=== PATIENT | female | born 1990 | race Caucasian/White ===

== ENCOUNTER 2019-08-11 09:28 | Inpatient (IN) ==
[2019-08-11] MEDS ORDERED: Famotidine 20 MG/2 ML VIAL IVP PRN (10:05)
[2019-08-11] MEDS ORDERED: Metoclopramide 10 MG/2 ML VIAL IVP PRN ×2 (10:05→13:53)
[2019-08-11] MEDS ORDERED: Lidocaine 1% 20 ML MDV INFILT PRN (10:05)
[2019-08-11] MEDS ORDERED: Ondansetron 4 MG/2 ML VIAL IVP PRN ×2 (10:05→13:53)
[2019-08-11] MEDS ORDERED: *HR* Nalbuphine 10 MG/ML AMPUL IVP PRN (10:05)
[2019-08-11] MEDS ORDERED: Naloxone 0.4 MG/ML INJ IVP PRN (10:05)
[2019-08-11] MEDS ORDERED: Ringers Solution, Lactated 1,000 ML IVC SCH ×2 (10:15→14:00)
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
[2019-08-11 11:00] LABS: Amphetamine Screen,Urine Negative ng/mL (Cutoff=1000); Barbiturate Screen,Urine Negative ng/mL (Cutoff=200); Basophils % 0.3 %; Benzodiazepines Screen,Urine Negative ng/mL (Cutoff=200); Cannabinoid Screen,Urine Negative ng/mL (Cutoff = 50); Cocaine Screen,Urine Negative ng/mL (Cutoff= 300); Eosinophils # 0.2 K/mcL (0.0-0.6); Eosinophils % 1.2 %; Hematocrit 36.6 % (35.3-44.9); Hemoglobin 11.8 g/dL (11.5-15.4); Immature Granulocytes % 0.5 % (0-4); Lymphocytes # 1.8 K/mcL (0.6-4.6); Lymphocytes % 13.8 %; Mean Corpuscular HGB Conc 32.2 g/dL (31.6-35.5); Mean Corpuscular Hemoglobin 27.3 pg (28.0-33.3); Mean Corpuscular Volume 84.5 fL (83.0-100.0); Mean Platelet Volume 10.7 fL (9.4-12.4); Monocytes # 0.9 K/mcL (0.0-1.3); Monocytes % 6.8 %; Neutrophils # 9.9 K/mcL (1.6-8.9); Opiate Screen,Urine Negative ng/mL (Cutoff=300); Phencyclidine Screen,Urine Negative ng/mL (Cutoff=25); Platelet Count 264 K/mcL (140-400); Red Blood Count 4.33 M/mcL (3.82-4.97); Red Cell Distribution Width 15.2 % (11.5-14.5); Segmented Neutrophils % 77.4 %; White Blood Count 12.7 K/mcL (4.3-11.1)
[2019-08-11] MEDS ORDERED: Azithromycin 500 MG in 0.9 % Sodium Chloride 250 ML IVPB ONE (12:05)
--- NOTE | 2019-08-11 12:07 | OB Labor Progress Note ---
Date of Encounter: 08/11/19 Time of Encounter: 12:06 Labor Progress Note - Subjective Subjective: Pt uncomfortable and requesting IV pain medication - Cervix Cervix: 6/90/+1 - Heart Tones Heart Tones: Baseline 150 Moderate variability Acceleratons present 15 x 15 No decelerations FHR Category I - Dent Dent: Contractions every 2-3 minutes - Interventions Interventions: SVE-outdoor recreation specialist thought to felt feet and buttocks. Confirmed by bedside ultrasound. Dr. Perry notified and to bedside for confirmatory US - Plan Physician notified: No Plan: Stop expectant management Care turned over to Dr. Perry at this time to proceed with primary low transverse
[2019-08-11] MEDS ORDERED: *HR* Morphine Sulfate/PF 10 MG/10 ML AMPUL ONE (12:08)
[2019-08-11] MEDS ORDERED: EPHEDrine 50 MG/ML VIAL ONE (12:08)
[2019-08-11] MEDS ORDERED: *HR* FentaNYL (PF) 100 MCG/2 ML VIAL ONE (12:08)
[2019-08-11] MEDS ORDERED: *HR* Oxytocin 10 UNIT/ML VIAL IM ONE (12:18)
[2019-08-11] MEDS ORDERED: Ringers Solution, Lactated 1,000 ML ONE (12:18)
[2019-08-11] MEDS ORDERED: Oxytocin 20 units/ LR 1000 mL 20 UNIT/1,000 ML BAG IVC ONE (12:33)
[2019-08-11] MEDS ORDERED: Dexamethasone 4 MG/ML VIAL ONE (12:59)
[2019-08-11] MEDS ORDERED: Ondansetron 4 MG/2 ML VIAL ONE (12:59)
[2019-08-11] MEDS ORDERED: Ketorolac 30 MG/ML VIAL ONE (13:00)
[2019-08-11] MEDS ORDERED: Sennosides 8.6 MG TABLET PO PRN (13:53)
[2019-08-11] MEDS ORDERED: Rho Immune Globulin 1,500 UNIT SYRINGE IM ONE (13:53)
--- NOTE | 2019-08-11 13:53 | OB/GYN Procedure Note ---
Section - Date of procedure: 08/11/19 Preop diagnosis: breech Post-op diagnosis: same Procedure: primary low transverse Surgeon: Lorrie Gomez Blood Loss: 300 Was there an physicians assistant present: Yes Inventory Control Assistant: Yareli Andrews Trash Man: Debbie Maddox Anesthesia Type: Spinal section complications: none Disposition: L&D Recovery Room Specimens: Placenta, Cord blood - Infant (s) A Infant Delivery Date: 08/11/19 Infant Delivery Time: 12:59 Presentation: breech Gender: Female Gram Weight: 3.08 kg Shoulder Dystocia: not encountered - Narrative Narrative: The patient was taken to the operating room where spinal anesthesia was given and found to be adequate. The patient was prepped and draped in the usual sterile fashion in the dorsal supine position with a left-benoit tilt. A Pfannenstiel skin incision was made with the scalpel and carried through to the underlying layer of fascia. The fascia was incised in the midline and extended laterally using Marquez scissors. Janae clamps were used to elevate the superior aspect of the fascial incision, which was elevated, and the underlying rectus muscles were dissected off bluntly and using Marquez scissors. Attention was then turned to the inferior aspect of the fascial incision, which in similar fashion was grasped with Janae clamps, elevated, and the underlying rectus muscles were dissected off bluntly and using Marquez scissors. The rectus muscles were dissected in the midline. The peritoneum was bluntly dissected, entered, and extended superiorly and inferiorly with good visualization of the bladder. The bladder blade was inserted. The vesicouterine peritoneum was identified with pickups and entered sharply using Metzenbaum scissors. This incision was extended laterally and the bladder flap was created digitally. The bladder blade was reinserted. The lower uterine segment was incised in a transverse fashion using the scalpel and extended using manual traction. The infant was subsequently delivered atraumatically. The nose and mouth were bulb suctioned. The cord was clamped and cut. The was subsequently handed to the awaiting nursery nurse. The uterus was exteriorized and cleared of all clots and debris. The uterine incision was repaired in 2 layers using 0 vicryl suture. Hemostasis was visualized. The uterus was returned to the abdomen. The uterine incision was reexamined and was noted to be hemostatic. The fascia was closed with 0 Vicryl, the subcutaneous layer was closed with 3-0 vicryl and the skin was closed with 4-0 vicryl. Sponge, lap, and instrument counts were correct x2. The patient was stable at the completion of the procedure and was subsequently transferred to the recovery room in stable condition.
[2019-08-11] MEDS ORDERED: Oxytocin 20 units/ LR 1000 mL 20 UNIT/1,000 ML BAG IVC SCH (14:00)
--- NOTE | 2019-08-11 14:08 | Anesthesia Evaluation PreOp ---
Date of Encounter: 08/11/19 Time of Encounter: 12:00 - Past History Planned Operation: pcs Cardiac History: Denies any Significant Hx Pulmonary History: Denies Any Significant HX DRUM OPERATOR History: Denies Any Significant HX Other Medical History: Denies Any Significant HX Anesthesia History: No Prior Anesthetic Complications : Yes Test: Positive Alcohol Use: none Drug use: none Medications and Allergies valACYclovir [Valtrex] 500 mg PO DAILY 07/22/17 [History] Pnv No.95/Ferrous Fum/Folic AC [ Caplet] 1 tab PO DAILY 08/08/19 [History] Allergy/AdvReac Type Severity Reaction Status Date / Time No Known Allergies Allergy Verified 08/11/19 10:46 - Meds/Allergy Pre-op Review Medications Reviewed: Yes Allergies Reviewed: Yes Beta Blockers on Current Med List: No Anesthesia Results - Labs 08/11/19 10:22 Anesthesia Exam - HEENT Pupil (Motor): Pupils equal Mallampati: II Teeth: Normal Oral Opening: Greater than 3 - DRUM OPERATOR LOC: Oriented DRUM OPERATOR Motor: Normal RUE, Normal LUE, Normal RLE, Normal LLE, Normal Face DRUM OPERATOR Sensory: Normal: RUE, LUE, RLE, LLE, Face - Cardiac Rhythm: Regular Murmur: None JVD: No Carotid Bruit: No - Pulmonary Breath Sounds: bilateral Clear Respiratory Effort: Symmetrical Anesthesia Assess/Plan ASA Score: 1 Level of consciousness: Cooperative Anesthetic Plan: Spinal Monitoring Plan: Standard Monitors Recovery Plan: PACU
--- NOTE | 2019-08-11 14:10 | Anesthesia Procedures ---
Date of Encounter: 08/11/19 Time of Encounter: 12:00 Procedures: Anesthesia - Epidural/Spinal Patient ID/Chart reviewed: Yes Patient examined: Yes OB Eval: Gestational age: 38 OB Eval: : 1 OB Eval: Hx Para: 0 OB Eval: Contractions: Non-stressed pattern Consent Obtained: Yes Site Prep: Aseptic Technique, Sterile prep and drape, Povidone-Iodine 1% Patient position: upright Amount of Local Anesthetic used: 3 Interspace Used: L4-L5 Loss of Resistance (AIDEN): No Blood: No CSF: Yes Paresthesia: No Procedure: no anesthesia complications VSS FHTS duramorph 0.3mg fentanyl 10mcg bupivicaine 0.75% 1.6ml
[2019-08-11] MEDS: Simethicone 80 MG TAB.CHEW PO PRN (23:34)
[2019-08-11] MEDS: Ibuprofen 600 MG TABLET PO PRN (23:34)
[2019-08-12] MEDS: Acetaminophen 325 MG TABLET PO PRN ×2 (03:58→15:35)
[2019-08-12 07:07] LABS: Basophils % 0.3 %; Eosinophils % 0.2 %; Hematocrit 26.9 % (35.3-44.9); Immature Granulocytes % 0.5 % (0-4); Lymphocytes # 2.2 K/mcL (0.6-4.6); Lymphocytes % 16.9 %; Mean Corpuscular Hemoglobin 27.1 pg (28.0-33.3); Mean Corpuscular Volume 84.9 fL (83.0-100.0); Mean Platelet Volume 10.9 fL (9.4-12.4); Monocytes # 0.7 K/mcL (0.0-1.3); Monocytes % 5.6 %; Platelet Count 206 K/mcL (140-400); Red Blood Count 3.17 M/mcL (3.82-4.97); Red Cell Distribution Width 15.1 % (11.5-14.5); Segmented Neutrophils % 76.5 %
[2019-08-12 07:09] LABS: Hemoglobin 8.6 g/dL (11.5-15.4)
[2019-08-12] MEDS: Ibuprofen 600 MG TABLET PO PRN ×2 (08:29→22:44)
[2019-08-12] MEDS: Prenatal Vit/FA 1 EACH TABLET PO SCH (08:30)
--- NOTE | 2019-08-12 08:53 | OB/GYN Progress Note ---
Date of Encounter: 08/12/19 Time of Encounter: 08:42 - Assessment and Plan (1) Status post primary low transverse section Current Visit: Yes Status: Acute Patient meeting day one milestones. Pain well-controlled with prescribed medications. Driscoll removed this morning with no void yet, tolerating regular diet, bleeding light. No bowel movement yet. Anticipate discharge tomorrow (2) Acute blood loss anemia Current Visit: Yes Status: Acute Patient is asymptomatic with Hgb of 8.6 Increase iron to twice daily with meals. (3) Breast feeding status of mother Current Visit: Yes Status: Acute support as needed Patient states she has a breast pump ordered from her insurance company. Subjective - Subjective Principal diagnosis: Status post primary section Interval history: Date of procedure: 08/11/19 Preop diagnosis: breech Post-op diagnosis: same Procedure: primary low transverse Surgeon: Lorrie Gomez Blood Loss: 300 Was there an finance assistant present: Yes Senior Market Research Analyst: Yareli Andrews Assistant Film Editor: Debbie Maddox Anesthesia Type: Spinal section complications: none Disposition: L&D Recovery Room Specimens: Placenta, Cord blood - (s) A Infant Delivery Date: 08/11/19 Infant Delivery Time: 12:59 Presentation: breech Gender: Female Gram Weight: 3.08 kg Shoulder Dystocia: not encountered - Narrative Narrative: The patient was taken to the operating room where spinal anesthesia was given and found to be adequate. The patient was prepped and draped in the usual sterile fashion in the dorsal supine position with a left-benoit tilt. A Pfannens tiel skin incision was made with the scalpel and carried through to the underlying layer of fascia. The fascia was incised in the midline and extended laterally using Marquez scissors. Janae clamps were used to elevate the superior aspect of the fascial incision, which was elevated, and the underlying rectus muscles were dissected off bluntly and using Marquez scissors. Attention was then turned to the inferior aspect of the fascial incision, which in similar fashion was grasped with Janae clamps, elevated, and the underlying rectus muscles were dissected off bluntly and using Marquez scissors. The rectus muscles were dissected in the midline. The peritoneum was bluntly dissected, entered, and extended superiorly and inferiorly with good visualization of the bladder. The bladder blade was insert ed. The vesicouterine peritoneum was identified with pickups and entered sharply using Metzenbaum scissors. This incision was extended laterally and the bladder flap was created digitally. The bladder blade was reinserted. The lower uterine segment was incised in a transverse fashion using the scalpel and extended using manual traction. The infant was subsequently delivered atraumatically. The nose and mouth were bulb suctioned. The cord was clamped and cut. The infant was subsequently handed to the awaiting nursery nurse. The uterus was exteriorized and cleared of all clots and debris. The uterine incision was repaired in 2 layers using 0 vicryl suture. Hemostasis was visualized. The uterus was returned to the abdomen. The uterine incision was reexamined and was noted to be hemostatic. The fascia was closed with 0 Vicryl, the subcutaneous layer was closed with 3-0 vicryl and the skin was closed with 4-0 vicryl. Sponge, lap, and instrument counts were correct x2. The patient was stable at the completion of the procedure and was subsequently transferred to the recovery room in stable condition. Patient reports: appetite normal, voiding normally (No void yet since driscoll removed), pain well controlled, ambulating normally [place]: doing well, nursing well Objective - Vital Signs Latest vital signs: Vital Signs Temp Pulse Pulse Resp BP Pulse Ox 08/12/19 08:21 98.2 F 93 14 110/66 98 08/12/19 03:00 98.1 F 86 16 114/58 97 08/11/19 23:47 99.1 F 92 14 124/71 96 08/11/19 20:00 98.3 F 100 16 123/75 97 08/11/19 19:04 97.9 F 91 16 133/82 97 08/11/19 18:05 98.1 F 82 82 16 133/79 98 08/11/19 17:30 97.6 F 85 16 116/82 98 08/11/19 16:55 98 22 Intake and Output 08/11/19 08/12/19 08/12/19 23:59 07:59 15:59 Output Total 450 / 750 750 / 750 Balance -450 / -750 -750 / -750 Output: Catheter 450 / 450 750 / 750 Other: Weight 94.166 kg - Exam Lungs: bilateral: normal Chest: Normal S1, Normal S2 Extremities: Present: normal Abdomen: Present: normal appearance, soft. Absent: distention, tenderness Incision: Present: dry, intact, dressed (surgical dressing) Uterus: Present: normal, firm Fundal Height: 0 (@U) - Labs Labs: Laboratory Results - last 24 hr 08/11/19 08/11/19 08/12/19 10:22 10:22 05:53 WBC 12.7 H 13.0 H RBC 4.33 3.17 L Hgb 11.8 8.6 L D Hct 36.6 26.9 L MCV 84.5 84.9 MCH 27.3 L 27.1 L MCHC 32.2 32.0 RDW 15.2 H 15.1 H Plt Count 264 206 MPV 10.7 10.9 Immature Gran % 0.5 0.5 Seg Neutrophils % 77.4 76.5 Lymphocytes % 13.8 16.9 Monocytes % 6.8 5.6 Eosinophils % 1.2 0.2 Basophils % 0.3 0.3 Neutrophils # 9.9 H 10.0 H Lymphocytes # 1.8 2.2 Monocytes # 0.9 0.7 Eosinophils # 0.2 0.0 Basophils # 0.0 0.0 Urine Opiates Screen Negative Ur Buprenorphine Scrn Negative Ur Barbiturates Screen Negative Ur Phencyclidine Scrn Negative Ur Amphetamines Screen Negative U Benzodiazepines Scrn Negative Urine Cocaine Screen Negative U Marijuana (THC) Screen Negative Ur Drug Screen Interp See Below
[2019-08-12] MEDS: *HR* OxyCODONE/APAP 5/325 TABLET PO PRN (20:35)
[2019-08-13] MEDS: *HR* OxyCODONE/APAP 5/325 TABLET PO PRN ×2 (01:56→08:59)
[2019-08-13] MEDS: Ibuprofen 600 MG TABLET PO PRN (05:34)
[2019-08-13 08:12] VITALS: BP 132/80
[2019-08-13] MEDS: Prenatal Vit/FA 1 EACH TABLET PO SCH (08:55)
[2019-08-13] MEDS: Simethicone 80 MG TAB.CHEW PO PRN (09:08)
--- NOTE | 2019-08-13 09:28 | Discharge Summary ---
Date of Encounter: 08/13/19 Time of Encounter: 09:26 - Discharge Diagnosis (1) Status post primary low transverse section Priority: Primary Status: Acute Comments: Continue routine /postop care discharge home today follow up with Dr. Perry in 2 weeks for incision check follow up with CNM in 4-6 weeks (2) Breast feeding status of mother Priority: Secondary Status: Acute Comments: lactations support prn (3) anemia Priority: Secondary Status: Acute Comments: Continue ferrous sulfate 325mg po BID - Discharge Medications Prescriptions: New Docusate [Colace] 100 mg PO BID #30 capsule Ferrous Sulfate 325 mg PO BIDWM #60 tablet Ibuprofen [Motrin] 600 mg PO Q6HR PRN #60 tablet PRN Reason: Cramping OxyCODONE/APAP 5/325 [Percocet 5/325 MG] 1 each PO Q6H PRN 5 Days #20 tablet PRN Reason: Moderate pain 4-6 Continued Pnv No.95/Ferrous Fum/Folic AC [ Caplet] 1 tab PO DAILY Discontinued valACYclovir [Valtrex] 500 mg PO DAILY Home Medications: Pnv No.95/Ferrous Fum/Folic AC [ Caplet] 1 tab PO DAILY 08/08/19 [History] Docusate [Colace] 100 mg PO BID #30 capsule 08/13/19 [Rx] Ferrous Sulfate 325 mg PO BIDWM #60 tablet 08/13/19 [Rx] Ibuprofen [Motrin] 600 mg PO Q6HR PRN #60 tablet 08/13/19 [Rx] OxyCODONE/APAP 5/325 [Percocet 5/325 MG] 1 each PO Q6H PRN 5 Days #20 tablet 08/13/19 [Rx] Allergies/Adverse Reactions: Allergy/AdvReac Type Severity Reaction Status Date / Time No Known Allergies Allergy Verified 08/11/19 10:46 Data Procedures and tests throughout hospitalization: Laboratory Tests 08/11/19 08/11/19 08/11/19 10:22 10:22 13:40 WBC 12.7 H RBC 4.33 Hgb 11.8 Hct 36.6 MCV 84.5 MCH 27.3 L MCHC 32.2 RDW 15.2 H Plt Count 264 MPV 10.7 Immature Gran % 0.5 Seg Neutrophils % 77.4 Lymphocytes % 13.8 Monocytes % 6.8 Eosinophils % 1.2 Basophils % 0.3 Neutrophils # 9.9 H Lymphocytes # 1.8 Monocytes # 0.9 Eosinophils # 0.2 Basophils # 0.0 Urine Opiates Screen Negative Ur Buprenorphine Scrn Negative Ur Barbiturates Screen Negative Ur Phencyclidine Scrn Negative Ur Amphetamines Screen Negative U Benzodiazepines Scrn Negative Urine Cocaine Screen Negative U Marijuana (THC) Screen Negative Ur Drug Screen Interp See Below Baby's Blood Type O RH NEGATIVE Mother's Blood Type O RH NEGATIVE Rhogam Indicated NO 08/12/19 05:53 WBC 13.0 H RBC 3.17 L Hgb 8.6 L D Hct 26.9 L MCV 84.9 MCH 27.1 L MCHC 32.0 RDW 15.1 H Plt Count 206 MPV 10.9 Immature Gran % 0.5 Seg Neutrophils % 76.5 Lymphocytes % 16.9 Monocytes % 5.6 Eosinophils % 0.2 Basophils % 0.3 Neutrophils # 10.0 H Lymphocytes # 2.2 Monocytes # 0.7 Eosinophils # 0.0 Basophils # 0.0 Urine Opiates Screen Ur Buprenorphine Scrn Ur Barbiturates Screen Ur Phencyclidine Scrn Ur Amphetamines Screen U Benzodiazepines Scrn Urine Cocaine Screen U Marijuana (THC) Screen Ur Drug Screen Interp Baby's Blood Type Mother's Blood Type Rhogam Indicated Date of admission: 08/11/19 09:28 Primary care physician: Racheal Flores CNP Consults: 08/11/19 15:52 Consult to Pottery Decorator (W&C) [CONS] Routine Reason For Exam: Reason for SW Consult: EPDS score of 10 Discharging clinician: Katrina Hawley Anticipated date of discharge: 08/13/19 - Patient Status Disposition: Home, Self-Care Condition: Good Functional capacity at discharge: independent ambulation - Discharge Instructions Follow Up With: Racheal Flores CNP [Primary Care Provider] - Lorrie Perry MD [Partnered Physician] - - Diet and Activity Activity: increase activity as tolerated Diet: regular diet Hospital Course Reason for admission: active labor Delivery: section (breech presentation) Episiotomy: none Laceration: none Other procedures: none complications: none Discharge diagnosis: IUP at term delivered baby: female (breast feeding) Time Attestation: Total time spent providing and/or coordinating discharge services: Time Spent: Less than 30 minutes - VTE Reasons for not Prescribing Prophylaxis: Treatment not Indicated - Low risk for VTE Documentation of Mechanical Device: Intermittent pneumatic compression device Exam - Constitutional Vitals: Temp Pulse Resp BP Pulse Ox 98.8 F 94 14 132/80 97 08/13/19 07:45 08/13/19 07:45 08/12/19 20:10 08/13/19 07:45 08/13/19 07:45 General appearance IM: A&O X 3, pleasant, answers questions appropriately - Respiratory Respiratory exam: Present: CTAB - Cardiovascular Cardiovascular exam IM: Present: RRR, +S1, +S2 - GI/Abdominal GI/Abdominal exam IM: normal bowel sounds Incision: normal, dry, intact - Uterine Tone: Firm Uterus Position: 3 Fingers Below Umbilicus, Midline - Extremities Exam Extremities exam IM: Present: full ROM, normal capillary refill, normal inspection - Neurological Exam Neurological exam: alert, oriented X3, reflexes normal
== END 2019-08-13 13:08 | disposition home or self-care (01) | DRG 540 ==
LOC: 1NENULAB → 1NENUOBS 17:15
PROVIDERS: ADMIT Advanced Practice Midwife; ATTEND Advanced Practice Midwife